=== PATIENT | male | born 1985 | race Caucasian/White ===

== ENCOUNTER 2017-10-05 17:55 | Emergency (ER) | payer OTHER ==
[~2017-10-05] VITALS: Ht 182.9 cm; Wt 122.7 kg
[2017-10-05] MEDS ORDERED: INDOCIN50 MG PO (18:58)
[2017-10-05] MEDS ORDERED: PEN-VEE K,VEET500 MG PO (18:58)
[2017-10-05 19:10] VITALS: BP 139/103
== END 2017-10-05 19:10 | disposition home or self-care (01) ==
LOC: EME 17:55
PROC: 3E0T3BZ Introduction of Anesthetic Agent into Peripheral Nerves and Plexi, Percutaneous Approach (ICD-10-PCS; principal; 2017-10-05)
DX: S02.5XXA Fracture of tooth (traumatic), initial encounter for closed fracture (principal); X58.XXXA Exposure to other specified factors, initial encounter; F17.200 Nicotine dependence, unspecified, uncomplicated; Z91.040 Latex allergy status
CPT/HCPCS: 99281; 99284

== ENCOUNTER 2017-11-13 15:24 | Emergency (ER) | payer OTHER ==
[~2017-11-13] VITALS: Ht 182.9 cm; Wt 120.6 kg
[~2017-11-13 15:24] MED LIST: INDOCIN50 MG PO; PEN-VEE K,VEET500 MG PO
[2017-11-13 17:33] LABS: SOURCE URINE
[2017-11-13 17:38] LABS: APPEARANCE CLEAR ((CLEAR)); BILIRUBIN NEGATIVE; BLOOD NEGATIVE; COLOR YELLOW ((YELLOW)); GLUCOSE (STRIP) NEGATIVE; KETONES NEGATIVE; LEUKOCYTES NEGATIVE; NITRITE NEGATIVE; PROTEIN (STRIP) NEGATIVE; SPECIFIC GRAVITY 1.023 (1.000-1.030); UCUL ADDED? NO
[2017-11-13 17:53] VITALS: BP 110/67
[2017-11-16 15:20] LABS: CHLAMYDIA TRACHOMATIS NEGATIVE; NEISSERIA GONORRHOEAE NEGATIVE
== END 2017-11-13 17:55 | disposition home or self-care (01) ==
LOC: EME 15:24
PROVIDERS: Physician Assistant
DX: Z20.2 Contact with and (suspected) exposure to infections with a predominantly sexual mode of transmission (principal); F43.10 Post-traumatic stress disorder, unspecified; F17.200 Nicotine dependence, unspecified, uncomplicated; Z91.040 Latex allergy status
CPT/HCPCS: 81003; 87491; 87591; 99281; 99284; J0696